=== PATIENT | male | born 1970 | race Caucasian/White ===

== ENCOUNTER 2017-09-08 15:14 | Emergency (ER) | payer BC ==
[~2017-09-08] VITALS: Ht 177.8 cm; Wt 101.9 kg
[~2017-09-08 15:14] MED LIST: OXYC-57 PO
[2017-09-08] MEDS ORDERED: SODIUM CHLORIDE 0.9% 1000ML 1,000 ML IV STA ×2 (15:45→19:40)
[2017-09-08 16:12] LABS: BASO % 0.1 %; BASO ABS # 0.01 K/uL (0-0.2); EOS % 0.6 %; EOS ABS # 0.06 K/uL (0-0.5); HEMATOCRIT 43.6 % (42-52); HEMOGLOBIN 15.5 g/dL (14.0-18.0); IG# 0.02 K/uL (0.00-0.02); LYMPH % 15.8 %; LYMPH ABS # 1.49 K/uL (1.2-3.4); MEAN CORPUSCULAR HEMOGLOBIN 29.5 pg (25-34); MEAN CORPUSCULAR HGB CONC 35.6 g/dl (32-36); MEAN PLATELET VOLUME 10.3 fL (7.4-10.4); MONO % 9.9 %; MONO ABS # 0.93 K/uL (0.11-0.59); NEUT % 73.4 %; PLATELET COUNT 220 K/uL (130-400); RED CELL DISTRIBUTION WIDTH CV 12.7 % (11.5-14.5); WHITE BLOOD COUNT 9.41 K/uL (4.8-10.8)
[2017-09-08 16:31] LABS: ALBUMIN 3.5 gm/dl (3.4-5.0); CALCIUM 8.8 mg/dl (8.5-10.1); CREATININE 0.98 mg/dl (0.60-1.40); POTASSIUM 3.8 mmol/L (3.5-5.1)
[2017-09-08 16:33] LABS: TOTAL PROTEIN 7.1 gm/dl (6.4-8.2)
--- NOTE | 2017-09-08 16:51 | DIAGNOSTIC IMAGING REPORT ---
ABDOMEN AND PELVIS CT WITHOUT CONTRAST CT DOSE: 1496.95 mGy.cm HISTORY: RLQ pain, hematuria. TECHNIQUE: Multiaxial CT images of the abdomen and pelvis were performed without the use of intravenous and oral contrast according to the standard department stone protocol. A dose lowering technique was utilized adhering to the principles of ALARA. COMPARISON STUDY: None. FINDINGS: The lung bases are clear. No pneumoperitoneum. No pneumatosis. No acute fractures within the visualized osseous structures. The unenhanced liver, gallbladder, spleen, kidneys, and right adrenal gland are unremarkable. A 1.7 cm fat-containing lesion within the left adrenal gland is consistent with a myelolipoma. No renal or ureteral calculi. No hydronephrosis. Bladder is not well-distended but appears unremarkable. Tiny fat-containing left inguinal hernia. Trace pelvic free fluid. No evidence for bowel obstruction. A few colonic diverticula. Thick-walled and mildly distended appendix measuring up to 9 mm in diameter. There is associated periappendiceal fat stranding. Findings are consistent with acute appendicitis. No perforation or abscess identified at this time. IMPRESSION: Acute appendicitis. Electronically signed by: Rafa Storey M.D. 09/08/2017 4:50 PM Dictated Date/Time: 09/08/2017 4:45 PM
--- NOTE | 2017-09-08 17:10 | EMERGENCY ROOM VISIT NOTE ---
History Report prepared by Makenzieibkelle: Royal Kahn Under the Supervision of: Dr. Noman Lora M.D. First contact with patient: 15:28 Chief Complaint: ABDOMINAL PAIN Stated Complaint: STOMACH PAIN History of Present Illness The patient is a 46 year old male who presents to the Emergency Room with complaints of constant abdominal pain for 2 days BRIM STIFFENER. He notes the pain began in his upper abdomen and migrated to his right lower quadrant and occasionally feels sharp pain. He currently rates his pain a 7/10 in severity. He notes that movement worsens the pain. He notes that when he applies pressure to the RLQ, the pain worsens. He also notes chills, mild diarrhea, and nausea. His last meal was 2 hours BRIM STIFFENER. He reports taking "headache medicine," for a headache earlier in the week, though he has not taken any other medication for pain. He notes his urine is darker in color than normal. He notes that he has had similar symptoms in Jun 2017, though it resolved itself within 24 hours. He denies any family history of kidney disease. He denies any history of abdominal surgeries. Pt denies fevers, diaphoresis, neck pain, chest pain, breathing difficulties, vomiting, back pain, melena, hematochezia, urinary symptoms, numbness, weakness, lymphadenopathy, rash, ear pain, sore throat, or other complaints. Source of History: patient Onset: 2 days BRIM STIFFENER Position: abdomen Symptom Intensity: 7/10 Quality: sharp Timing: constant Modifying Factors (Worsening): movement, other (pressure) Associated Symptoms: + chills, + headache, + nausea, + diarrhea (mild) Review of Systems See HPI for pertinent positives and negatives. A total of ten systems were reviewed and were otherwise negative. Past Medical & Surgical Patient denies any pertinent past medical history and pertinent past surgical history. Family History Cancer Diabetes mellitus Heart disease Social History Smoking Status: Never Smoker Smokeless Tobacco Use: No Marital Status: Housing Status: lives with significant other Occupation Status: employed Current/Historical Medications No Active Prescriptions or Reported Meds Allergies Coded Allergies: No Known Allergies (Unverified , NONE, 09/08/17) Physical Exam Vital Signs Date Time Temp Pulse Resp B/P (MAP) Pulse Ox O2 Delivery O2 Flow Rate FiO2 09/08/17 19:06 83 16 107/63 94 Room Air 09/08/17 17:40 97 Room Air 09/08/17 17:09 94 18 125/70 97 Room Air 09/08/17 15:27 37.0 101 18 130/84 98 Room Air Physical Exam GENERAL: Awake, alert, mildly uncomfortable-appearing, in no distress HENT: Normocephalic, atraumatic. Oropharynx unremarkable. EYES: Normal conjunctiva. Sclera non-icteric. NECK: Supple. No nuchal rigidity. FROM. No JVD. RESPIRATORY: Clear to auscultation. CARDIAC: Borderline tachycardic rate, normal rhythm. Extremities warm and well perfused. Pulses equal. ABDOMEN: Soft, non-distended. Tenderness to palpation. Rebound and guarding in RLQ. positive Rovsing's sign. No masses. RECTAL: Deferred. : No hernia or tenderness. MUSCULOSKELETAL: Chest examination reveals no tenderness. The back is symmetrical on inspection without obvious abnormality. There is no CVA tenderness to palpation. No joint edema. LOWER EXTREMITIES: Calves are equal size bilaterally and non-tender. No edema. No discoloration. NEURO: Normal sensorium. No sensory or motor deficits noted. SKIN: No rash or jaundice noted. Medical Decision & Procedures ER Provider Diagnostic Interpretation: Radiology results as stated below per my review and radiologist interpretation: ABDOMEN AND PELVIS CT WITHOUT CONTRAST CT DOSE: 1496.95 mGy.cm HISTORY: RLQ pain, hematuria. TECHNIQUE: Multiaxial CT images of the abdomen and pelvis were performed without the use of intravenous and oral contrast according to the standard department stone protocol. A dose lowering technique was utilized adhering to the principles of ALARA. COMPARISON STUDY: None. FINDINGS: The lung bases are clear. No pneumoperitoneum. No pneumatosis. No acute fractures within the visualized osseous structures. The unenhanced liver, gallbladder, spleen, kidneys, and right adrenal gland are unremarkable. A 1.7 cm fat-containing lesion within the left adrenal gland is consistent with a myelolipoma. No renal or ureteral calculi. No hydronephrosis. Bladder is not well-distended but appears unremarkable. Tiny fat-containing left inguinal hernia. Trace pelvic free fluid. No evidence for bowel obstruction. A few colonic diverticula. Thick-walled and mildly distended appendix measuring up to 9 mm in diameter. There is associated periappendiceal fat stranding. Findings are consistent with acute appendicitis. No perforation or abscess identified at this time. IMPRESSION: Acute appendicitis. Electronically signed by: Rafa Storey M.D. 09/08/2017 4:50 PM Dictated Date/Time: 09/08/2017 4:45 PM Laboratory Results 09/08/17 16:02 Red Blood Count 5.25, Mean Corpuscular Volume 83.0, Mean Corpuscular Hemoglobin 29.5, Mean Corpuscular Hemoglobin Concent 35.6, Mean Platelet Volume 10.3, Neutrophils (%) (Auto) 73.4, Lymphocytes (%) (Auto) 15.8, Monocytes (%) (Auto) 9.9, Eosinophils (%) (Auto) 0.6, Basophils (%) (Auto) 0.1, Neutrophils # (Auto) 6.90, Lymphocytes # (Auto) 1.49, Monocytes # (Auto) 0.93, Eosinophils # (Auto) 0.06, Basophils # (Auto) 0.01 09/08/17 16:02 Test 09/08/17 15:56 09/08/17 16:02 Urine Color DK YELLOW Urine Appearance CLEAR (CLEAR) Urine pH 6.5 (4.5-7.5) Urine Specific [place] 1.031 (1.000-1.030) Urine Protein NEG (NEG) Urine Glucose (UA) TRACE (NEG) Urine Ketones TRACE (NEG) Urine Occult Blood TRACE (NEG) Urine Nitrite NEG (NEG) Urine Bilirubin NEG (NEG) Urine Urobilinogen NEG (NEG) Urine Leukocyte Esterase NEG (NEG) Urine WBC (Auto) 1-5 /hpf (0-5) Urine RBC (Auto) 5-10 /hpf (0-4) Urine Hyaline Casts (Auto) 1-5 /lpf (0-5) Urine Epithelial Cells (Auto) 0-5 /lpf (0-5) Urine Bacteria (Auto) NEG (NEG) White Blood Count 9.41 K/uL (4.8-10.8) Red Blood Count 5.25 M/uL (4.7-6.1) Hemoglobin 15.5 g/dL (14.0-18.0) Hematocrit 43.6 % (42-52) Mean Corpuscular Volume 83.0 fL (80-100) Mean Corpuscular Hemoglobin 29.5 pg (25-34) Mean Corpuscular Hemoglobin Concent 35.6 g/dl (32-36) Platelet Count 220 K/uL (130-400) Mean Platelet Volume 10.3 fL (7.4-10.4) Neutrophils (%) (Auto) 73.4 % Lymphocytes (%) (Auto) 15.8 % Monocytes (%) (Auto) 9.9 % Eosinophils (%) (Auto) 0.6 % Basophils (%) (Auto) 0.1 % Neutrophils # (Auto) 6.90 K/uL (1.4-6.5) Lymphocytes # (Auto) 1.49 K/uL (1.2-3.4) Monocytes # (Auto) 0.93 K/uL (0.11-0.59) Eosinophils # (Auto) 0.06 K/uL (0-0.5) Basophils # (Auto) 0.01 K/uL (0-0.2) RDW Standard Deviation 38.0 fL (36.4-46.3) RDW Coefficient of Variation 12.7 % (11.5-14.5) Immature Granulocyte % (Auto) 0.2 % Immature Granulocyte # (Auto) 0.02 K/uL (0.00-0.02) Anion Gap 4.0 mmol/L (3-11) Est Creatinine Clear Calc Drug Dose 115.0 ml/min Estimated GFR () 108.2 Estimated GFR (Non- 93.4 BUN/Creatinine Ratio 14.2 (10-20) Calcium Level 8.8 mg/dl (8.5-10.1) Total Bilirubin 0.8 mg/dl (0.2-1) Direct Bilirubin 0.2 mg/dl (0-0.2) Aspartate Amino Transf (AST/SGOT) 8 U/L (15-37) Alanine Aminotransferase (ALT/SGPT) 20 U/L (12-78) Alkaline Phosphatase 85 U/L (45-117) Total Protein 7.1 gm/dl (6.4-8.2) Albumin 3.5 gm/dl (3.4-5.0) Lipase 124 U/L (73-393) Laboratory results reviewed by me Medications Administered Medications (Trade) Dose Ordered Sig/Amanda Route Start Time Stop Time Status Last Admin Dose Admin Sodium Chloride 1,000 ml @ 999 mls/hr Q1H1M STAT IV 09/08/17 15:45 09/08/17 16:45 DC 09/08/17 16:12 999 MLS/HR ED Course 1536: The patient was evaluated in room B8. A complete history and physical exam was performed. 1545: Ordered Sodium Chloride 1,000 ml @ 999 mls/hr IV 1700: I reassessed the patient at this time. He is feeling better and resting comfortably. I discussed the results and treatment plan with the patient. I answered all pertaining questions that he had. He expressed understanding and verbalized agreement. The patient will be further evaluated. 181:I spoke with Dr. Perez, surgeon. We discussed the patients case. The patient will be evaluated by the [facility] for further management. Medical Decision Triage Nursing notes reviewed. The patient's presentation and history were concerning for abdominal pain. Etiologies such as appendicitis, diverticulitis, obstruction, inflammatory bowel disease, renal colic, PUD, biliary pathology, pancreatitis, mesenteric ischemia, aortic pathology, infections, genitourinary, UTI, perforated viscus, as well as others were entertained. The patient was evaluated. His clinical examination was concerning for appendicitis. He declined analgesia. The patient was given a liter of normal saline. He was sent for CT imaging. His blood work was rather unremarkable. There was some trace hematuria noted on urinalysis. CT imaging was concerning for acute appendicitis. The patient was informed. General surgery was consulted. The patient was kept nothing by mouth. He was started on normal saline hydration. The patient will be further managed by general surgery. Medication Reconcilliation Current Medication List: was personally reviewed by me Blood Pressure Screening Patient's blood pressure: Elevated blood pressure Blood pressure disposition: Referred to PCP Consults Time Called: 1709 Consulting Physician: Dr. Perez, surgeon Returned Call: 1809 Gen. surgery was consulted. The patient was evaluated by the physician web production assistant in the emergency department and will be taken to the operating suite for definitive treatment. Impression Primary Impression: Acute appendicitis Scribe Attestation The scribe's documentation has been prepared under my direction and personally reviewed by me in its entirety. I confirm that the note above accurately reflects all work, treatment, procedures, and medical decision making performed by me. Departure Information Dispostion Being Evaluated By Surgeon Prescriptions No Active Prescriptions or Reported Meds Referrals Elena Jimenez M.D. (PCP) Patient Instructions My [facility]
[2017-09-08 17:40] VITALS: O2SAT 97; Ht 177.8 cm; Wt 101.9 kg
--- NOTE | 2017-09-08 18:03 | Medical Consult ---
Consultation Date of Consultation: Sep 08, 2017. Attending Physician: Reason for Consultation: Acute Appendicitis History of Present Illness 46-year-old healthy male presented to [facility] with 2 day history of abdominal pain. Patient states that pain began near umbilicus and has now localized to right lower quadrant. He states that he has been feeling nauseous, had chills, and has had some diarrhea the last couple of days. He states that this afternoon he was feeling hungry, so he had 2 slices of pizza at 2PM. He denies prior abdominal surgeries. Past Medical/Surgical History Medical Problems: (1) Acute appendicitis Status: Acute Denies surgical history. Family History Cancer Diabetes mellitus Heart disease Social History Smoking Status: Never Smoker Smokeless Tobacco Use: No Marital Status: Housing Status: lives with significant other Occupation Status: employed Allergies Coded Allergies: No Known Allergies (Unverified , NONE, 09/08/17) Review of Systems Constitutional: No fever, No chills Respiratory: No cough Cardiovascular: No chest pain Abdomen: + pain, + nausea, + diarrhea, No vomiting Physical Exam Date Time Temp Pulse Resp B/P (MAP) Pulse Ox O2 Delivery O2 Flow Rate FiO2 09/08/17 17:09 94 18 125/70 97 Room Air 09/08/17 15:27 37.0 101 18 130/84 98 Room Air General Appearance: WD/WN, no apparent distress Head: normocephalic, atraumatic Respiratory/Chest: lungs clear, no respiratory distress, no accessory muscle use Abdomen/GI: soft, + tenderness, + pertinent finding (tender to palpation in right lower quadrant. ) Skin: normal color, warm/dry, no rash Laboratory Results Last 24 Hours Test 09/08/17 15:56 09/08/17 16:02 Urine Color DK YELLOW Urine Appearance CLEAR Urine pH 6.5 Urine Specific [place] 1.031 Urine Protein NEG Urine Glucose (UA) TRACE Urine Ketones TRACE Urine Occult Blood TRACE Urine Nitrite NEG Urine Bilirubin NEG Urine Urobilinogen NEG Urine Leukocyte Esterase NEG Urine WBC (Auto) 1-5 /hpf Urine RBC (Auto) 5-10 /hpf Urine Hyaline Casts (Auto) 1-5 /lpf Urine Epithelial Cells (Auto) 0-5 /lpf Urine Bacteria (Auto) NEG White Blood Count 9.41 K/uL Red Blood Count 5.25 M/uL Hemoglobin 15.5 g/dL Hematocrit 43.6 % Mean Corpuscular Volume 83.0 fL Mean Corpuscular Hemoglobin 29.5 pg Mean Corpuscular Hemoglobin Concent 35.6 g/dl Platelet Count 220 K/uL Mean Platelet Volume 10.3 fL Neutrophils (%) (Auto) 73.4 % Lymphocytes (%) (Auto) 15.8 % Monocytes (%) (Auto) 9.9 % Eosinophils (%) (Auto) 0.6 % Basophils (%) (Auto) 0.1 % Neutrophils # (Auto) 6.90 K/uL Lymphocytes # (Auto) 1.49 K/uL Monocytes # (Auto) 0.93 K/uL Eosinophils # (Auto) 0.06 K/uL Basophils # (Auto) 0.01 K/uL RDW Standard Deviation 38.0 fL RDW Coefficient of Variation 12.7 % Immature Granulocyte % (Auto) 0.2 % Immature Granulocyte # (Auto) 0.02 K/uL Sodium Level 138 mmol/L Potassium Level 3.8 mmol/L Chloride Level 106 mmol/L Carbon Dioxide Level 28 mmol/L Anion Gap 4.0 mmol/L Blood Urea Nitrogen 14 mg/dl Creatinine 0.98 mg/dl Est Creatinine Clear Calc Drug Dose 115.0 ml/min Estimated GFR () 108.2 Estimated GFR (Non- 93.4 BUN/Creatinine Ratio 14.2 Random Glucose 106 mg/dl Calcium Level 8.8 mg/dl Total Bilirubin 0.8 mg/dl Direct Bilirubin 0.2 mg/dl Aspartate Amino Transf (AST/SGOT) 8 U/L Alanine Aminotransferase (ALT/SGPT) 20 U/L Alkaline Phosphatase 85 U/L Total Protein 7.1 gm/dl Albumin 3.5 gm/dl Lipase 124 U/L ABDOMEN AND PELVIS CT WITHOUT CONTRAST CT DOSE: 1496.95 mGy.cm HISTORY: RLQ pain, hematuria. TECHNIQUE: Multiaxial CT images of the abdomen and pelvis were performed without the use of intravenous and oral contrast according to the standard department stone protocol. A dose lowering technique was utilized adhering to the principles of ALARA. COMPARISON STUDY: None. FINDINGS: The lung bases are clear. No pneumoperitoneum. No pneumatosis. No acute fractures within the visualized osseous structures. The unenhanced liver, gallbladder, spleen, kidneys, and right adrenal gland are unremarkable. A 1.7 cm fat-containing lesion within the left adrenal gland is consistent with a myelolipoma. No renal or ureteral calculi. No hydronephrosis. Bladder is not well-distended but appears unremarkable. Tiny fat-containing left inguinal hernia. Trace pelvic free fluid. No evidence for bowel obstruction. A few colonic diverticula. Thick-walled and mildly distended appendix measuring up to 9 mm in diameter. There is associated periappendiceal fat stranding. Findings are consistent with acute appendicitis. No perforation or abscess identified at this time. IMPRESSION: Acute appendicitis. Electronically signed by: Rafa Storey M.D. 09/08/2017 4:50 PM Dictated Date/Time: 09/08/2017 4:45 PM Assessment & Plan 46-year-old male- CT confirmed acute appendicitis. WBC 9.41, afebrile. Patient tender to palpation in RLQ. Discussed patient with Dr. Perez. Will plan for Laparoscopic Appendectomy, Possible Open in OR tonight 10PM- discussed with anesthesia, will wait 8 hrs due to last meal at 2PM this afternoon. Discussed risks and benefits of surgery with patient and patient's significant other. NPO SCDs
[2017-09-08 20:34] VITALS: O2SAT 94
[2017-09-08] MEDS ORDERED: CEFOXITIN SOD 2 GM VIAL IV STA (21:36)
--- NOTE | 2017-09-08 21:36 | History & Physical Bridge Note ---
H&P Re-Evaluation Bridge Note: I have examined the patient, reviewed the History & Physical and in the interval since the performance of the History & Physical I have noted the following changes of clinical significance: No changes noted pt examined family at bedside scheduled for lap appy possible open r and c explained to pt
[2017-09-08] MEDS ORDERED: LIDOCAINE/EPINEPHRINE 1% 20 ML VIAL ONE (21:40)
[2017-09-08] MEDS ORDERED: MIDAZOLAM HCL 1 MG/ML 2ML VIAL ONE (21:44)
[2017-09-08] MEDS ORDERED: FENTANYL CITRATE INJ 50 MCG/1 ML 2 ML VIAL ONE (21:44)
[2017-09-08] MEDS ORDERED: PROPOFOL IV EMULSION 10 MG/ML 20 ML VIAL IV ONE (21:49)
[2017-09-08] MEDS ORDERED: SUCCINYLCHOLINE CHLORIDE 20 MG/ML 10 ML VIAL IV ONE (21:49)
[2017-09-08] MEDS ORDERED: LIDOCAINE HCL 2% 2 ML VIAL (20MG/ML) ONE (21:49)
[2017-09-08] MEDS ORDERED: CEFOXITIN SOD 1 GM VIAL ONE (21:56)
[2017-09-08] MEDS ORDERED: HYDROmorphone INJ 2 MG/ML SYR/VIAL ONE (22:30)
[2017-09-08] MEDS ORDERED: DEXAMETHASONE SOD INJ 4 MG/ML VIAL ONE (22:50)
[2017-09-08] MEDS ORDERED: ROCURONIUM BROMIDE 10 MG/ML 5 ML VIAL IV ONE (22:50)
[2017-09-08] MEDS ORDERED: ONDANSETRON INJ 2 MG/ML 2 ML VIAL ONE (22:50)
[2017-09-08] MEDS ORDERED: GLYCOPYRROLATE INJ 0.2 MG/ML VIAL ONE ×2 (22:51→22:55)
[2017-09-08] MEDS ORDERED: KETOROLAC TROMETHAMINE 30 MG/ML VIAL ONE (22:53)
--- NOTE | 2017-09-08 23:06 | [facility] Operative Report ---
Operative Report Operative Date Sep 08, 2017. Pre-Operative Diagnosis Acute appendicitis Post-Operative Diagnosis Same Procedure(s) Performed Laparoscopic Appendectomy Surgeon Dr Perez Pasteurizer Helper Surgeon(s) Monico Donaldson PA-C Estimated Blood Loss 3ML Findings acute non ruptured appendicitis Specimens A. appendix Description of Procedure OR summary dictated confirmation number [id number] I attest to the content of the Intraoperative Record and any orders documented therein. Any exceptions are noted below.
[2017-09-08] MEDS ORDERED: HYDR-5688 PO (23:15)
[2017-09-08] MEDS ORDERED: SODIUM CHLORIDE 0.9% 1000ML 1,000 ML IV SCH (23:20)
--- NOTE | 2017-09-08 23:20 | Discharge Instructions ---
Discharge Instructions Date of Service Sep 08, 2017. Visit Reason for Visit: Stomach Pain Discharge Discharge Diagnosis / Problem: Appendicitis Discharge Goals Goal(s): Decrease discomfort, Improve function Activity Recommendations Activity Limitations: as noted below Lifting Limitations: no more than 10 pounds, until after follow-up appointment Shower/Bathe: tomorrow (You may shower, please do not submerge your incision for 1 week (ie. baths, pools, hot tubs)) Driving or Machine Use: resume 3 days after discharge (Please do not drive while using narcotic pain medication. ) Anesthesia . Post Anesthesia Instructions: If you have had General Anesthesia or IV Sedation: * Do not drive today. * Resume driving when surgeon permits. * Do not make important decisions or sign legal documents today. * Call surgeon for: 1. Temperature elevations greater than 101 degrees F. 2. Uncontrollable pain. 3. Excessive bleeding. 4. Persistent nausea and vomiting. 5. Medication intolerance (nausea, vomiting or rash). * For nausea and vomiting use only clear liquids such as: tea, soda, bouillon until nausea subsides, then gradually increase diet as tolerated. * If you have any concerns or questions, call your surgeon's office. If physician is unavailable and it is an emergency, call 911 or go to the nearest emergency room. . Instructions / Follow-Up Instructions / Follow-Up You have steri-strips covering your incisions. Please allow these to fall off on their own. You have been prescribed [place] to take as needed for pain relief. You may also alternate this with Ibuprofen as needed for better pain relief. Please follow-up with Dr. Perez in 1 week. Please contact our office at [phone] to schedule an appointment if you have not done so already. Please contact our office with any questions or concerns. [facility]. [address] [place] [address]. Diet Recommendations Recommended Home Diet: no limitations, resume previous diet Procedures Procedures Performed: Laparoscopic Appendectomy Pending Studies Studies pending at discharge: yes List of pending studies: pathology Medical Emergencies . Who to Call and When: Medical Emergencies: If at any time you feel your situation is an emergency, please call 911 immediately. . Non-Emergent Contact Non-Emergency issues call your: Primary Care Provider, Surgeon Call Non-Emergent contact if: you have a fever, temperature is above 101, temperature is above 101.5, your pain is not controlled, your pain is worsening , wound has increased drainage, wound has increased redness, you have any medication questions . . "Provider Documentation" section prepared by Monico Gutiérrez. . [place] Drug Monitoring Program Search Results: patient reviewed within database, no issues identified
[2017-09-08] MEDS ORDERED: ONDANSETRON INJ 2 MG/ML 2 ML VIAL IV PRN ×2 (23:30)
[2017-09-08] MEDS ORDERED: EpHEDrine SULFATE INJ 50 MG/ML AMP IV PRN (23:30)
[2017-09-08] MEDS ORDERED: IBUPROFEN 600 MG TAB PO PRN (23:30)
[2017-09-08] MEDS ORDERED: NORCO 5/325MG HOME PACK PO ONE (23:30)
[2017-09-08] MEDS ORDERED: ATROPINE SULFATE 0.1 MG/ML 5ML SYR IV PRN (23:30)
[2017-09-08] MEDS ORDERED: FENTANYL CITRATE INJ 50 MCG/1 ML 2 ML VIAL IV PRN (23:30)
[2017-09-08] MEDS ORDERED: HYDROCODONE/ACETAMOPHEN 5/325MG TAB PO PRN ×2 (23:30)
[2017-09-08 23:55] VITALS: BP 109/67; PULSE 75; TEMP 36.7; O2SAT 96
--- NOTE | 2017-09-08 23:55 | OPERATIVE REPORT ---
DATE OF OPERATION: 09/08/2017 SURGEON: Leo Perez MD EQUIPMENT SERVICE LEAD: Monico Donaldson PA-C PREOPERATIVE DIAGNOSIS: Acute appendicitis. POSTOPERATIVE DIAGNOSIS: Acute non-ruptured appendicitis. PROCEDURE: Laparoscopic appendectomy. SUMMARY: After induction of general endotracheal anesthesia, the patient's abdomen was prepped with Betadine scrubbing solution and properly draped. A small incision was made supraumbilically sufficient enough to place a Veress needle followed by a 5-mm trocar followed by CO2 followed by the scope. Point of entry inspected and no injury identified. Under direct visualization, we placed the 5-mm right upper quadrant port with preemptive local anesthesia and 1% Xylocaine with epinephrine. With these and then we were able to elevate the cecum and identify the appendix, which appeared to be fibrinous going down towards the pelvic brim. It seemed like there was a fatty tissue around the terminal ileum that was completely adherent to that area. At this point, we converted the 5-mm umbilical port to 11 mm and then placed a 5 mm in the left lower quadrant and placed a camera in the left lower quadrant. With the 2 ports up, we were able then to free up the mesoappendix, which was quite thickened and the fibrinous exudate on the appendix itself. Once we elevated this up, we were able to see there was fat from the terminal ileum adherent to that mesoappendix, which we bluntly freed up. We then created a window at the base of the appendix to the mesoappendix and we were able to place a purple load of the WILMAR stapler without any difficulty, took the appendix off the cecum. We then used a purple load again for the mesoappendix and divided it without any difficulty. We checked the area multiple times for any bleeding. There was not appeared to be any oozing. There seemed to be only bleeding that we saw was related to the fat that was strictly adherent to the mesoappendix as we mobilized that, but that eventually stopped. We placed the appendix in an Endopouch and took it out intact through the epigastric port. The port was then repositioned and then we inspected the area quite significantly. There was no oozing appreciated at all. We placed the patient flat again. We rotated him to the left a little bit before the procedure. Again, no injury identified. Individual trocars removed. We closed the fascial stitch of the umbilical area with a [id number] of 0 Vicryl x2 down to the Monocryl. Steri-Strips applied. The procedure was tolerated well by the patient. Estimated blood loss was approximately 3 mL. The patient was taken to recovery in good condition. I attest to the content of the Intraoperative Record and any orders documented therein. Any exception s are noted below.
--- NOTE | 2017-09-09 00:06 | Anesthesiology Progress Note ---
Anesthesia Post Op Note Date & Time Sep 09, 2017 at 00:06 Vital Signs Pain Intensity: 1 Vital Signs Past 12 Hours Date Time Temp Pulse Resp B/P (MAP) Pulse Ox O2 Delivery O2 Flow Rate FiO2 09/08/17 23:45 36.7 73 16 126/79 100 Room Air 09/08/17 23:35 69 16 124/74 100 Oxymask 7 09/08/17 23:25 84 16 120/72 100 Oxymask 7 09/08/17 23:15 36.7 92 16 129/79 100 Oxymask 7 09/08/17 20:34 72 16 115/72 94 Room Air 09/08/17 19:06 83 16 107/63 94 Room Air 09/08/17 17:40 97 Room Air 09/08/17 17:09 94 18 125/70 97 Room Air 09/08/17 15:27 37.0 101 18 130/84 98 Room Air Notes Mental Status: alert / awake / arousable, participated in evaluation Pt Amnestic to Procedure: Yes Nausea / Vomiting: adequately controlled Pain: adequately controlled Airway Patency, RR, SpO2: stable & adequate BP & HR: stable & adequate Hydration State: stable & adequate Anesthetic Complications: no major complications apparent
[2017-09-09 00:55] VITALS: BP 112/72; PULSE 70; TEMP 36.6; O2SAT 99
== END 2017-09-08 21:56 | disposition home or self-care (01) ==
LOC: C.EDB 15:16
DX: K35.80 Unspecified acute appendicitis (principal); Z83.3 Family history of diabetes mellitus; Z82.49 Family history of ischemic heart disease and other diseases of the circulatory system